=== PATIENT | male | born 1955 | race Caucasian/White ===

== ENCOUNTER → 2020-09-02 | Outpatient (CLI) | payer OTHER ==
--- NOTE | 2020-09-02 13:07 | KCIC ---
Examination: MRI of the left shoulder without contrast HISTORY: History of shoulder pain, fall COMPARISON: None available TECHNIQUE: Multiplanar, multisequence MR imaging of the left foot were performed without contrast. FINDINGS: The long head of the biceps tendon within the bicipital groove. The attachment of the long head the b iceps tendon to the superior labral anchor grossly appears intact. Moderate increased T2 signal ident ified in the subscapularis, supraspinatus, infraspinatus tendons likely tendinosis. There is full-thi ckness tear of the supraspinatus tendon with tendon retraction up to the level of the glenoid with ex tension of fluid into the subacromial/ subdeltoid bursa. The infraspinatus, teres minor tendon grossly appears intact. There is mild increased signal identifi ed in the posterior labrum likely tear with the multiloculated cystic structure extending inferiorly and medially measuring 1 cm likely paralabral cyst. There is mild obscuration of fat in the interval. The acromion is type II. Moderate degenerative changes identified in the acromioclavicular joint, gl enohumeral joint. Small cystic structure identified in the posterior lateral humerus head likely dege nerative changes. IMPRESSION: 1. Full-thickness tear of the supraspinatus tendon with tendon retraction up to the level of the gle noid with extension of fluid into the subacromial subdeltoid bursa. 2. Mild increased signal identified in the posterior labrum likely tear with multiloculated cystic s tructure extending inferiorly and medially measuring 1 cm likely paralabral cyst. 3. Mild obscuration of fat in the interval. Correlate for adhesive capsulitis. 4. Moderate degenerative changes acromioclavicular joint, glenohumeral joint. Electronically signed by: Jace Soliz MD (09/02/2020 1:04 PM) [id number]
== END ==
LOC: KCIC MRI 10:08
PROVIDERS: ATTEND Preventive Medicine Occupational Medicine
DX: S46.012S Strain of muscle(s) and tendon(s) of the rotator cuff of left shoulder, sequela (principal); X58.XXXS Exposure to other specified factors, sequela
CPT/HCPCS: 73221